=== PATIENT | female | born 1945 | race Caucasian/White ===

== ENCOUNTER → 2020-07-20 16:52 | Outpatient (CLI) | payer MEDICARE, OTHER, SELFPAY ==
--- NOTE | 2020-07-20 16:53 | MRI_ITS ---
STUDY: MRI BRAIN WITH AND WITHOUT CONTRAST REASON FOR EXAM: Female, 74 years old. Gait disorder TECHNIQUE: Standardized multiplanar fat and water weighted pulse sequences were obtained. IV 15ml Dotarem was administered for the contrast portion of the examination. COMPARISON: None. FINDINGS: There is mild cerebral atrophy with widening of the extra-axial spaces and ventricular dilatation. There are a limited number of small white matter hyperintensities, distributed throughout the deep white matter tracts of the cerebral hemispheres, consistent with mild chronic white matter ischemic changes. There is no evidence for recent intracranial ischemia or other cause of cytotoxic edema on diffusion weighted imaging (DWI). Normal T2* images of the brain without demonstrated susceptibility artifact. There is no demonstrated hemosiderin stain. Normal bilateral basal ganglia. Normal thalami. There is no extra-axial fluid accumulation. Normal flow voids within the major intracranial circulation suggesting patency by spin echo criteria. Normal venous enhancement. There is no enhancing intra-axial or extra-axial abnormality. Normal sella turcica, pituitary gland, infundibular stalk, optic chiasm and hypothalamus. Normal tectal plate and pineal gland. Normal midbrain, jasmeet and medulla. Normal cerebellum. Normal basal cisterns. Normal bilateral temporal bones. Normal bilateral internal auditory canals. No demonstrated orbital abnormality, within the constraints of a routine brain study. Normal visualized paranasal sinuses. Normal calvarium and skull base. Normal visualized soft tissue structures. Normal visualized upper cervical spine. MRI/Brain W/WO Contrast IMPRESSION: Involutional changes of the brain, as described above. Electronically Signed: Francisco Boyce MD at 13:18 EDT Tel , Service support ,
== END ==
PROVIDERS: PCP Family Medicine; Referring Provider Psychiatry & Neurology Neurology; Visit Provider Psychiatry & Neurology Neurology
DX: R26.9 Unspecified abnormalities of gait and mobility (principal)
CPT/HCPCS: 70553; A9575

== ENCOUNTER → 2020-07-28 06:23 | Outpatient (CLI) | payer MEDICARE, OTHER, SELFPAY ==
--- NOTE | 2020-07-28 13:10 | NEURO ---
NCS and/or EMG Patient Report Ordering Doctor: Blair Bradshaw DATE OF SERVICE: 07/28/20 Beverly Mcgarry presents for electrodiagnostic testing of the lower limbs. She reports poor balance, leg weakness and numbness in the feet. Electrodiagnostic findings: Right peroneal motor nerve demonstrates normal distal latency with reduced amplitude and normal conduction velocity. Left peroneal motor response is within normal limits. Decreased tibial motor amplitude bilaterally. Decreased tibial conduction velocity bilaterally. Absent sensory responses bilaterally, in both the sural and superficial peroneal nerves. Prolonged H reflex bilaterally. Prolonged left peroneal and right tibial F wave. On needle EMG, motor units of increased amplitude and duration noted bilaterally in the peroneus longus, right gastrocnemius and right anterior tibialis. No acute denervation is noted. Electrodiagnostic impression: This is an abnormal study in the lower limbs. 1. 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 There is evidence of axonal loss. Etiology of this condition is unknown. 2. There is no electrodiagnostic evidence for lumbosacral radiculopathy.
== END ==
PROVIDERS: PCP Family Medicine; Referring Provider Psychiatry & Neurology Neurology; Visit Provider Psychiatry & Neurology Neurology
DX: G62.89 Other specified polyneuropathies (principal)
CPT/HCPCS: 95886; 95911

== ENCOUNTER → 2021-01-10 16:04 | Outpatient (CLI) | payer MEDICARE, OTHER, SELFPAY | PROVIDERS: PCP Family Medicine; Referring Provider Psychiatry & Neurology Neurology; Visit Provider Psychiatry & Neurology Neurology | DX: E53.8 Deficiency of other specified B group vitamins (principal) | CPT/HCPCS: 36415; 82746 ==

== ENCOUNTER → 2021-01-24 08:12 | Outpatient (CLI) | payer MEDICARE, OTHER, SELFPAY ==
--- NOTE | 2021-01-24 09:59 | NEURO ---
NCS and/or EMG Patient Report Ordering Doctor: Blair Bradshaw DATE OF SERVICE: 01/24/21 Indication: Right wrist pain of an achy quality. Intermittent numbness and tingling of digits II-IV on the right hand. History of remote neck injury, but no current radicular symptoms. Findings: Nerve conduction studies were performed in the right upper extremity. The right median motor study recording the abductor pollicis brevis showed a normal amplitude, prolonged distal latency and mildly slowed conduction velocity. The right ulnar motor study recording the abductor digiti minimi showed a normal amplitude, normal distal latency and normal conduction velocity. No conduction block or focal slowing was present across the elbow. The right median sensory response recording digit two showed a normal amplitude, prolonged latency and slowed conduction velocity. The right ulnar sensory response recording digit five showed a normal amplitude, latency and conduction velocity. The right radial sensory response recording over the extensor snuff box showed a normal amplitude, latency and conduction velocity. As routine median motor and sensory studies only demonstrated mild abnormalities, additional internal comparison studies were done to confirm this finding. Right median-ulnar lumbrical / interosseous motor latencies showed a prolonged median latency compared to the ulnar. Needle EMG of the right upper extremity muscles was performed. Examination of the cervical paraspinal muscles was not completed due to the patient being on Xarelto. No active denervation was present in any muscle. Motor units were slightly large with normal recruitment in the deltoid, biceps and triceps muscles. Motor units were large amplitude, long duration in the abductor pollicis brevis muscle. Motor units in the first dorsal interosseous were unremarkable. Impression: This is an abnormal study. 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 In addition, there are signs of reinnervation that are suggestive, but not diagnostic of, a mild, chronic, right C6-7 radiculopathy. Thus, there is concern for a double crush, two separate conditions that may result in upper extremity pain and similar sensory symptoms. Clinical correlation is needed in helping to determine the relative contributions of the two to the patients symptoms. Elvis Mckeon D.O. Multi Select Codes Neurology Neurology Interp Codes: 44677-31 Musc test done w/n test comp (interp) and 82214-36 Nr cndj test 7-8 studies (interp)
== END ==
PROVIDERS: PCP Family Medicine; Referring Provider Psychiatry & Neurology Neurology; Visit Provider Psychiatry & Neurology Neurology
DX: G56.01 Carpal tunnel syndrome, right upper limb (principal)
CPT/HCPCS: 95886; 95910

== ENCOUNTER 2021-06-23 10:03 | Outpatient (CLI) | payer MEDICARE, OTHER, SELFPAY ==
--- NOTE | 2021-06-23 10:04 | MRI_ITS ---
STUDY: MRI CERVICAL SPINE WITHOUT CONTRAST REASON FOR EXAM: Female, 75 years old. Neck pain; cervical radiculopathy C6-7 by EMG TECHNIQUE: Standardized fat and water weighted pulse sequences were obtained in the sagittal and axial planes. COMPARISON: None FINDINGS: Susceptibility artifact and postsurgical fibrotic scarring is seen at the T2-T3 interspinous levels or hardware is present. Normal foramen magnum and brainstem-cervical cord junction. Normal craniovertebral junction. Normal anterior atlantoaxial articulation. Normal odontoid process. There is straightening of the normal cervical lordosis. Disc desiccation is present at all levels. C2-3: Mild to moderate disc space narrowing with a minor posterior disc spur complex resulting in mass effect on the thecal sac and anterior aspect of the cord and mild central canal stenosis. Normal intervertebral neural foramina. Mild to moderate hypertrophy of the left facet joint. C3-4: Moderate to severe disc space narrowing with a diffuse disc osteophyte complex contribute to compression on anterior aspect of the cord and mild to moderate central canal stenosis. Moderate bilateral foraminal stenosis with nerve root compression due to uncovertebral facet joint hypertrophy. C4-5: Severe disc space narrowing with a diffuse disc osteophyte complex resulting in mild compression on the anterior aspect of the cord and mild central canal stenosis. Severe left foraminal stenosis with nerve root compression due to uncovertebral and facet joint hypertrophy. Mild right foraminal stenosis. C5-6: Severe disc space narrowing with a diffuse disc osteophyte complex resulting in mild compression on the anterior aspect of the cord and mild central canal stenosis. Mild left foraminal stenosis without nerve root compression. Normal right neural foramen C6-7: Severe disc space narrowing with a diffuse disc osteophyte complex resulting in mild compression on the anterior aspect of the cord and mild central canal stenosis. Mild left foraminal stenosis without nerve root compression. Normal right neural foramen C7-T1: Mild disc space narrowing with a minimal disc spur complex. Normal central canal and intervertebral neural foramina. Normal cervical cord. There is no demonstrated cervical cord syrinx cavity. Normal visualized soft tissue structures. MRI/Spine Cervical (Routine) IMPRESSION: 1. Multilevel degenerative changes, as described above. 2. Mild to moderate central canal stenosis with compression anterior aspect of cord from disc osteophyte complexes from C3-C4 down to C6-C7 Electronically Signed: Juancarlos Sprague MD at 14:42 EDT Reading Location ID and State: [address] [place] [address] , Service support ,
== END 2021-06-23 23:59 | disposition home or self-care (01) ==
LOC: MRI 10:04
PROVIDERS: PCP Family Medicine; Visit Provider Psychiatry & Neurology Neurology
DX: M54.12 Radiculopathy, cervical region (principal)
CPT/HCPCS: 72141

== ENCOUNTER → 2024-11-27 | Outpatient (CLI) | payer MEDICARE, OTHER, SELFPAY ==
--- NOTE | 2024-11-27 12:37 | RAD_ITS ---
PROCEDURE: FOOT MIN 3 VIEWS 11/27/2024 REASON FOR EXAM: RIGHT FOOT PAIN; HX RIGHT FOOT FX 30 YEAR AGO TECHNIQUE: FOOT MIN 3 VIEWS Laterality: Right COMPARISON: None. FINDINGS: BONES: No acute fracture or focal osseous lesion. Old healed 2nd metatarsal fracture. Hammertoe deformities noted. Small plantar calcaneal spur. Generalized decrease in bone density. JOINTS: No dislocation. Mild multifocal arthritic changes in the forefoot. SOFT TISSUES: Mild swelling in the dorsal midfoot. Calcifications noted in the region of the distal Achilles tendon, suggesting calcific tendinopathy. RAD/Foot min 3 Views IMPRESSION: SOFT TISSUE SWELLING. NO ACUTE OSSEOUS ABNORMALITY. Reading Location: [id number]
== END | disposition home or self-care (01) ==
PROVIDERS: PCP Student in an Organized Health Care Education/Training Program; Referring Provider Psychiatry & Neurology Neurology; Visit Provider Psychiatry & Neurology Neurology
DX: M79.671 Pain in right foot (principal)
CPT/HCPCS: 73630

== ENCOUNTER → 2024-12-30 | Outpatient (CLI) | payer MEDICARE, OTHER, SELFPAY ==
--- NOTE | 2024-12-30 14:39 | NEURO ---
NCS and/or EMG Patient Report Ordering Doctor: Blair Bradshaw DATE OF SERVICE: 12/30/24 Clinical Summary: 79 year old female patient with symptoms of right hand/wrist pain. History of carpal tunnel release surgery in 2023. Nerve Conduction Studies Summary: Nerve conduction studies were performed in the right upper extremity. The right median-D2 SNAP distal latency was prolonged. The right ulnar-D5 SNAP distal latency was prolonged. The right median-APB CMAP distal latency was prolonged. The right median motor conduction velocity was reduced in the forearm segment. Needle Examination Summary: Needle examination of select muscles of the right upper extremity was normal. Impression: This is an abnormal study. There is electrodiagnostic evidence of a moderate, right median mononeuropathy at the wrist (carpal tunnel syndrome), with sensory and motor fiber demyelination. There is no electrodiagnostic evidence of a right ulnar mononeuropathy or cervical radiculopathy. Multi Select Codes Neurology Neurology Interp Codes: 81714-18 Musc test done w/n test comp (interp) (1) and 29140-45 Nrv cndj tst 5-6 studies (interp)
== END | disposition home or self-care (01) ==
LOC: PSN 13:52
PROVIDERS: PCP Student in an Organized Health Care Education/Training Program; Referring Provider Psychiatry & Neurology Neurology; Visit Provider Psychiatry & Neurology Neurology
DX: M54.12 Radiculopathy, cervical region (principal); M54.2 Cervicalgia
CPT/HCPCS: 95886; 95909